=== PATIENT | male | born 1980 | race Hispanic/Latino ===

== ENCOUNTER 2019-05-11 17:42 | Observation (INO) | payer OTHER, SELFPAY ==
--- NOTE | 2019-05-11 | DI.CT.S_ITS ---
PROCEDURE: CT CERVICAL SPINE WO CON INDICATIONS: TRAUMA, FALL 10FT TECHNIQUE: Noncontrast 3 mm thick sections acquired from the skull base to the T4 level. Sagittal and coronal reformats were then constructed. For radiation dose reduction, the following was used: automated exposure control, adjustment of mA and/or kV according to patient size. COMPARISON: None. FINDINGS: Image quality: Excellent. Bones: No fractures or dislocations. Visualized superior ribs are intact. Soft tissues: Prevertebral soft tissues are normal in thickness. No paravertebral hematomas. No apical pneumothoraces. IMPRESSION: No trauma found. Dictated by: Yanick Monsivais M.D. on 05/11/2019 at 18:36 Approved by: Yanick Monsivais M.D. on 05/11/2019 at 18:37
--- NOTE | 2019-05-11 | DI.RAD.S_ITS ---
PROCEDURE: XR CHEST 1V INDICATIONS: TRAUMA TECHNIQUE: One view of the chest was acquired. COMPARISON: None. FINDINGS: Surgical changes and devices: None. Lungs and pleura: Lungs are abnormal, with reduced inspiration in what appears to be potentially mild alveolar edema bilaterally. Aspiration may explain the appearance.. No pleural effusions or pneumothorax. Mediastinum: Mediastinal contours appear normal. Heart size is normal. Bones and chest wall: No suspicious bony lesions. Overlying soft tissues appear unremarkable. IMPRESSION: Limited quality visualization, possible bilateral aspiration but this is in the setting of relatively prominently reduced inspiratory volume greater on the right than the left. Rib fractures or pneumothorax are not seen. Dictated by: Yanick Monsivais M.D. on 05/11/2019 at 18:34 Approved by: Yanick Monsivais M.D. on 05/11/2019 at 18:35
--- NOTE | 2019-05-11 | DI.RAD.S_ITS ---
PROCEDURE: XR PELVIS 1-2V INDICATIONS: TRAUMA TECHNIQUE: Single frontal view(s) of the pelvis acquired. COMPARISON: None. FINDINGS: Bones: No fractures or dislocations. No suspicious bony lesions. Soft tissues: Visualized bowel gas pattern is normal. No suspicious soft tissue calcifications. IMPRESSION: No trauma found. Dictated by: Yanick Monsivais M.D. on 05/11/2019 at 18:35 Approved by: Yanick Monsivais M.D. on 05/11/2019 at 18:35
--- NOTE | 2019-05-11 | DI.CT.S_ITS ---
PROCEDURE: CT CHEST ABD PEL W CON INDICATIONS: TRAUMA, FALL 10 FT TECHNIQUE: After the administration of intravenous contrast, 5 mm thick sections acquired from the lung apices to the symphysis. 2.5 mm thick coronal and sagittal reformats were acquired. Additional 7 mm thick coronal maximum intensity projection (MIP) reformats acquired through the lungs. Optional 10-minute delayed imaging may be performed from the kidneys to the bladder. For radiation dose reduction, the following was used: automated exposure control, adjustment of mA and/or kV according to patient size. COMPARISON: [facility], CR, XR CHEST 1V, 05/11/2019, 17:46. FINDINGS: Image quality: Excellent. CHEST: Lungs: No pulmonary contusions or lacerations. No acute airspace opacities. Reduced inspiratory volume, as was also noted on chest plain film, with crowding of the bronchovascular markings as a result. No aspiration is suspected No pneumothorax or hemothorax. Central and peripheral airways appear patent and normal in caliber. Mediastinum: No mediastinal hematomas. Heart size is normal. No pericardial effusion. Thoracic aorta and pulmonary arteries demonstrate normal size and enhancement. No mediastinal or hilar adenopathy. Esophagus is normal in caliber. No hiatal hernia. Chest wall: No rib fractures. No subcutaneous emphysema. No axillary or supraclavicular adenopathy. Thyroid gland appears normal. ABDOMEN: Solid organs: Liver is normal in size and enhancement, without lacerations. Gallbladder appears normal. Biliary system is non-dilated. Pancreas enhances normally, without transection. Spleen is normal in size and enhancement, without lacerations. No adrenal hematomas. Both kidneys enhance normally, without hydronephrosis or lacerations. Peritoneum and bowel: No free fluid or air. Unenhanced bowel loops demonstrate normal wall thickness and caliber. Nodes and vessels: No retroperitoneal or mesenteric adenopathy. Aorta and inferior vena cava are normal in size and enhancement. Miscellaneous: No ventral hernias. PELVIS: Genitourinary: Bladder wall thickness is normal. Miscellaneous: No inguinal hernias or adenopathy. Bones: Pelvic ring and hip joints appear intact. No vertebral compression fractures. IMPRESSION: No acute trauma found. Reduced inspiratory volumes crowding the bronchovascular markings over the chest bilaterally, right slightly greater than left. No aspiration seen. Dictated by: Yanick Monsivais M.D. on 05/11/2019 at 18:52 Approved by: Yanick Monsivais M.D. on 05/11/2019 at 18:57
--- NOTE | 2019-05-11 | DI.CT.S_ITS ---
PROCEDURE: CT HEAD/BRAIN WO CON INDICATIONS: TRAUMA, FALL OFF OF LADDER TECHNIQUE: Noncontrast 4.5 mm thick angled axial sections acquired from the foramen magnum to the vertex, with coronal and sagittal reformats. For radiation dose reduction, the following was used: automated exposure control, adjustment of mA and/or kV according to patient size. COMPARISON: None. FINDINGS: Image quality: Excellent. CSF spaces: Basal cisterns are patent. No extra-axial fluid collections. Ventricles are normal in size and shape. Brain: No midline shift. No intracranial masses or hemorrhage. Preciado-white matter interface is normal. Skull and face: Calvarium and visualized facial bones are intact, without suspicious lesions. Sinuses: Visualized sinuses and mastoids are clear. IMPRESSION: No trauma found. Dictated by: Yanick Monsivais M.D. on 05/11/2019 at 18:35 Approved by: Yanick Monsivais M.D. on 05/11/2019 at 18:36
[2019-05-11 17:39] VITALS: BP 122/82; PULSE 74; RESP 18; TEMP 36.6; O2SAT 99
--- NOTE | 2019-05-11 18:01 | ED.TRAUMA ---
HPI - Trauma General Chief Complaint: Trauma Stated Complaint: Fell over 11 ft Time Seen by Provider: 05/11/19 17:58 Source: patient and EMS Mode of arrival: EMS Limitations: no limitations History of Present Illness HPI narrative: 38-year-old male comes to the emergency department with for approximately 11 ft landing on his left side. Patient is complaining of pain on his left abdomen. Patient denies loss of consciousness. Is alert and oriented. Patient states that he slipped on a ladder. He fell onto his side. He denies any loss of consciousness. States he had a headache initially and when he went to CT scan but that has resolved. He also felt nauseated but that has also resolved. Currently he has discomfort sort of in his midthoracic region. He denies any discomfort in his abdomen but is tender with palpation. Patient denies any other injuries. He denies any neck pain. He states it is painful to take a big breath. Patient does not currently have any nausea. He denies any pain in his pelvis denies any pain in his extremities. States he feels a little bit of tingling in his fingers on the right. He denies any other symptoms. Denies any medical issues, no prior surgeries. No tobacco, states he drinks alcohol only on test of occasions and has had none today. Denies any illicit. He was at work when this occurred. Related Data Home Medications Medication Instructions Recorded Confirmed No Known Home Medications 05/11/19 05/11/19 Allergies Allergy/AdvReac Type Severity Reaction Status Date / Time No Known Drug Allergies Allergy Verified 05/11/19 18:17 Review of Systems Review of Systems ROS Unobtainable: All systems reviewed & are unremarkable except as noted in HPI and below Patient History Social History household members: spouse and family Smoking Status: Never smoker Smoking Status: Never smoker alcohol intake frequency: holidays/special occasions only Substance Use Type: does not use Exam Narrative Exam Narrative: GEN: C-collar prior to arrival, backboard. Patient appears in mild distress. HEAD: No evidence of trauma, no raccoon/Kapoor sign. NECK: Nontender, painless range of motion, trachea midline Negative Nexus criteria, there is no mid line tenderness in the C-spine, distracting injury, altered mental status, neuro deficit, recent EtOH. EYES: PERRLA, EOMI ENT: External inspection normal, trachea is midline, TM's are normal no hemotypanum, Nares are clear, no septal hematoma, no dental or oral injury, airway is normal and with normal occlusion, No bony tenderness RESP: Chest is nontender and has symmetric movement, no ecchymosis, breath sounds are normal no crackles, wheezes or rales CVS: Heart sounds are normal, no murmur noted, No JVD. ABG/GI: Nontender, soft, normal bowel sounds, no distention, no organomegaly, pelvic rock is negative NEURO: Oriented AOx3, neuro is grossly intact, sensation and motor is normal all 4 extremities moving, cranial nerves II through XII are intact, GCS is 15 PSYCH: Normal mood and affect SKIN: Intact, warm and dry, no crepitus and without decubitus BACK: Positive for midthoracic CVA tenderness, no vertebral tenderness, no step-off's, no crepitus EXT: Atraumatic, hips are nontender, no pedal edema, normal color and temperature, normal range of motion of extremities with normal tendon exam, 2+ pulses in all four extremities SKIN: Patient has small abrasion on right arm. Initial Vital Signs Initial Vital Signs: Vital Signs Temperature 97.8 F 05/11/19 17:39 Pulse Rate 74 05/11/19 17:39 Respiratory Rate 18 05/11/19 17:39 Blood Pressure 122/82 05/11/19 17:39 Pulse Oximetry 99 05/11/19 17:39 Scores GCS Barto coma scale eye opening: Spontaneous Jodie coma scale verbal response: Orientated Barto coma scale motor response: Obey commands Jodie coma scale total score: 15 Course Orders Ordered: ED Orders 05/11/19 17:54 Complete Blood Count AUTO DIFF Stat Comprehensive Metabolic Panel Stat Ethanol (ETOH) Stat Lipase Stat Partial Thromboplastin Time Stat Prothrombin Time INR Stat Type and Screen Stat 05/11/19 23:16 MR thoracic spine wo con Urgent Hydromorphone HCl (Dilaudid) 0.5 mg IV Q2H PRN PRN Reason: Pain, Severe (7-10) Sodium Chloride (Normal Saline 0.9%) 1,000 mls @ 125 mls/hr IV CONT ARTEM Naloxone HCl (Narcan) 0.2 mg IV Q2MIN PRN PRN Reason: Opiate Reversal Ondansetron HCl (Zofran) 4 mg IV Q4HR PRN PRN Reason: Nausea And Vomiting Oxycodone/Acetaminophen (Percocet 5/325) 1 tab PO Q4HR PRN PRN Reason: Pain, Mild (1-3) Discontinued Medications Diazepam (Valium) 5 mg IV NOW ONE Stop: 05/11/19 21:45 Last Admin: 05/11/19 21:59 Dose: 5 mg Documented by: BARRIE Fentanyl (Sublimaze) 50 mcg IV NOW ONE Stop: 05/11/19 18:46 Last Admin: 05/11/19 19:04 Dose: 50 mcg Documented by: SAAD Ketorolac Tromethamine (Toradol) 30 mg IV NOW ONE Stop: 05/11/19 20:11 Last Admin: 05/11/19 20:49 Dose: 30 mg Documented by: ONELIA Ondansetron HCl (Zofran) 4 mg IV NOW ONE Stop: 05/11/19 18:46 Last Admin: 05/11/19 19:04 Dose: 4 mg Documented by: SAAD Oxycodone/Acetaminophen (Percocet 5/325) 2 tab PO NOW ONE Stop: 05/11/19 21:45 Last Admin: 05/11/19 21:59 Dose: 2 tab Documented by: BARRIE Vital Signs Vital signs: Vital Signs - 8 hr 05/11/19 17:39 05/11/19 18:13 05/11/19 18:46 Temperature 97.8 F 97.8 F Pulse Rate 74 74 93 H Respiratory Rate 18 18 33 H Blood Pressure 122/82 122/82 Blood Pressure [Left Arm] 121/77 Pulse Oximetry 99 99 99 05/11/19 19:00 05/11/19 21:00 05/11/19 21:45 Temperature Pulse Rate 85 88 89 Respiratory Rate 22 15 Blood Pressure Blood Pressure [Left Arm] 125/72 122/70 Pulse Oximetry 100 100 96 MDM - Trauma Lab Data Attestation: I reviewed the patient's lab results. Result diagrams: 05/11/19 17:54 05/11/19 17:54 Labs: Lab Results 05/11/19 05/11/19 05/11/19 Range/Units 17:54 17:54 17:54 WBC 11.7 H (4.5-11.0) X10^3/uL RBC 4.80 (4.5-5.9) X10^6/uL Hgb 14.8 (13.5-17.5) g/dL Hct 43.3 (41-53) % MCV 90.1 (80-100) fL MCH 30.8 (26-34) PG MCHC 34.1 (30-36) % RDW 13.0 (11.6-14.8) % Plt Count 178 (150-400) X10^3/uL Neut % (Auto) 77.2 H (50-75) % Lymph % (Auto) 16.3 L (25-40) % [place] % (Auto) 4.7 (3-14) % Eos % (Auto) 1.3 L (2-4) % Baso % (Auto) 0.5 (0-2) % Neut # (Auto) 9100 H (0344-4987) /uL Lymph # (Auto) 1900 (9166-5492) /uL [place] # (Auto) 600 (0-900) /uL Eos # (Auto) 200 (0-450) /uL Baso # (Auto) 100 (0-100) /uL PT 12.8 H (10.1-12.7) SECONDS INR 1.1 (0.9-1.3) APTT 35 (26.4-36.2) SECONDS Sodium 139 (137-145) mmol/L Potassium 3.9 (3.4-5.1) mmol/L Chloride 105 (98-107) mmol/L Carbon Dioxide 25 (22-32) mmol/L BUN 18 (9-20) mg/dL Creatinine 0.67 (0.66-1.25) mg/dL Estimated GFR > 60.0 (>60) mL/min BUN/Creatinine Ratio 26.9 H (6-22) Glucose 107 H (70-100) mg/dL Calcium 9.3 (8.4-10.2) mg/dL Total Bilirubin 0.4 (0.2-1.3) mg/dL AST 56 (17-59) IU/L ALT 40 (<50) IU/L Alkaline Phosphatase 101 (38-126) U/L Total Protein 8.2 (6.3-8.2) g/dL Albumin 4.7 (3.5-5.0) g/dL Globulin 3.5 (1.7-4.1) g/dL Albumin/Globulin Ratio 1.3 (1.0-2.8) Lipase 69 (23-300) U/L Ethyl Alcohol < 10 ( - 10) mg/dL Blood Type Antibody Screen 05/11/19 Range/Units 17:54 WBC (4.5-11.0) X10^3/uL RBC (4.5-5.9) X10^6/uL Hgb (13.5-17.5) g/dL Hct (41-53) % MCV (80-100) fL MCH (26-34) PG MCHC (30-36) % RDW (11.6-14.8) % Plt Count (150-400) X10^3/uL Neut % (Auto) (50-75) % Lymph % (Auto) (25-40) % [place] % (Auto) (3-14) % Eos % (Auto) (2-4) % Baso % (Auto) (0-2) % Neut # (Auto) (9730-4786) /uL Lymph # (Auto) (7820-2497) /uL [place] # (Auto) (0-900) /uL Eos # (Auto) (0-450) /uL Baso # (Auto) (0-100) /uL PT (10.1-12.7) SECONDS INR (0.9-1.3) APTT (26.4-36.2) SECONDS Sodium (137-145) mmol/L Potassium (3.4-5.1) mmol/L Chloride (98-107) mmol/L Carbon Dioxide (22-32) mmol/L BUN (9-20) mg/dL Creatinine (0.66-1.25) mg/dL Estimated GFR (>60) mL/min BUN/Creatinine Ratio (6-22) Glucose (70-100) mg/dL Calcium (8.4-10.2) mg/dL Total Bilirubin (0.2-1.3) mg/dL AST (17-59) IU/L ALT (<50) IU/L Alkaline Phosphatase (38-126) U/L Total Protein (6.3-8.2) g/dL Albumin (3.5-5.0) g/dL Globulin (1.7-4.1) g/dL Albumin/Globulin Ratio (1.0-2.8) Lipase (23-300) U/L Ethyl Alcohol ( - 10) mg/dL Blood Type O Positive Antibody Screen Negative Imaging Data Chest x-ray: Radiologist's Impression: [address] [address] XRay Report Signed Patient: Eliseo ColonMR#: [id number] : 1980Acct:[id number] Age/Sex: 38 / MDate of Service: 05/11/19 Loc: ED Accession Number: [id number] Procedure: XR chest 1V Ordering Provider: Mackenzie White MD PROCEDURE: XR CHEST 1V INDICATIONS: TRAUMA TECHNIQUE: One view of the chest was acquired. COMPARISON: None. FINDINGS: Surgical changes and devices: None. Lungs and pleura: Lungs are abnormal, with reduced inspiration in what appears to be potentially mild alveolar edema bilaterally. Aspiration may explain the appearance.. No pleural effusions or pneumothorax. Mediastinum: Mediastinal contours appear normal. Heart size is normal. Bones and chest wall: No suspicious bony lesions. Overlying soft tissues appear unremarkable. IMPRESSION: Limited quality visualization, possible bilateral aspiration but this is in the setting of relatively prominently reduced inspiratory volume greater on the right than the left. Rib fractures or pneumothorax are not seen. Dictated by: Yancik Monsivais M.D. on 05/11/2019 at 18:34 Approved by: Yanick Monsivais M.D. on 05/11/2019 at 18:35 pelvic xray: Radiologist's Impression: [address] [address] XRay Report Signed Patient: Eliseo ColonMR#: [id number] : 1980Acct:[id number] Age/Sex: 38 / MDate of Service: 05/11/19 Loc: ED Accession Number: [id number] Procedure: XR pelvis 1-2V Ordering Provider: Mackenzie White MD PROCEDURE: XR PELVIS 1-2V INDICATIONS: TRAUMA TECHNIQUE: Single frontal view(s) of the pelvis acquired. COMPARISON: None. FINDINGS: Bones: No fractures or dislocations. No suspicious bony lesions. Soft tissues: Visualized bowel gas pattern is normal. No suspicious soft tissue calcifications. IMPRESSION: No trauma found. Dictated by: Yanick Monsivais M.D. on 05/11/2019 at 18:35 Approved by: Yanick Monsivais M.D. on 05/11/2019 at 18:35 CT scan - head: Radiologist's Impression: [address] [address] [address] Scan Report Signed Patient: Eliseo ColonMR#: [id number] : 1980Acct:[id number] Age/Sex: 38 / MDate of Service: 05/11/19 Loc: ED Accession Number: [id number] Procedure: CT head/brain wo con Ordering Provider: Mackenzie White MD PROCEDURE: CT HEAD/BRAIN WO CON INDICATIONS: TRAUMA, FALL OFF OF LADDER TECHNIQUE: Noncontrast 4.5 mm thick angled axial sections acquired from the foramen magnum to the vertex, with coronal and sagittal reformats. For radiation dose reduction, the following was used: automated exposure control, adjustment of mA and/or kV according to patient size. COMPARISON: None. FINDINGS: Image quality: Excellent. CSF spaces: Basal cisterns are patent. No extra-axial fluid collections. Ventricles are normal in size and shape. Brain: No midline shift. No intracranial masses or hemorrhage. Preciado-white matter interface is normal. Skull and face: Calvarium and visualized facial bones are intact, without suspicious lesions. Sinuses: Visualized sinuses and mastoids are clear. IMPRESSION: No trauma found. Dictated by: Yanick Monsivais M.D. on 05/11/2019 at 18:35 Approved by: Yanick Monsivais M.D. on 05/11/2019 at 18:36 CT - cervical spine: Radiologist's Impression: [address] [address] [address] Scan Report Signed Patient: Eliseo ColonMR#: [id number] : 1980Acct:[id number] Age/Sex: 38 / MDate of Service: 05/11/19 Loc: ED Accession Number: [id number] Procedure: CT cervical spine wo con Ordering Provider: Mackenzie White MD PROCEDURE: CT CERVICAL SPINE WO CON INDICATIONS: TRAUMA, FALL 10FT TECHNIQUE: Noncontrast 3 mm thick sections acquired from the skull base to the T4 level. Sagittal and coronal reformats were then constructed. For radiation dose reduction, the following was used: automated exposure control, adjustment of mA and/or kV according to patient size. COMPARISON: None. FINDINGS: Image quality: Excellent. Bones: No fractures or dislocations. Visualized superior ribs are intact. Soft tissues: Prevertebral soft tissues are normal in thickness. No paravertebral hematomas. No apical pneumothoraces. IMPRESSION: No trauma found. Dictated by: Yanick Monsivais M.D. on 05/11/2019 at 18:36 Approved by: Yanick Monsivais M.D. on 05/11/2019 at 18:37 CT scan - abdomen/pelvis: Radiologist's Impression: [place] [address] CT Scan Report Signed Patient: Eliseo MedranoMR#: [id number] : 1980Acct:[id number] Age/Sex: 38 / MDate of Service: 05/11/19 Loc: ED Accession Number: [id number] Procedure: CT chest abd pel w con Ordering Provider: Mackenzie White MD PROCEDURE: CT CHEST ABD PEL W CON INDICATIONS: TRAUMA, FALL 10 FT TECHNIQUE: After the administration of intravenous contrast, 5 mm thick sections acquired from the lung apices to the symphysis. 2.5 mm thick coronal and sagittal reformats were acquired. Additional 7 mm thick coronal maximum intensity projection (MIP) reformats acquired through the lungs. Optional 10-minute delayed imaging may be performed from the kidneys to the bladder. For radiation dose reduction, the following was used: automated exposure control, adjustment of mA and/or kV according to patient size. COMPARISON: [facility], CR, XR CHEST 1V, 05/11/2019, 17:46. FINDINGS: Image quality: Excellent. CHEST: Lungs: No pulmonary contusions or lacerations. No acute airspace opacities. Reduced inspiratory volume, as was also noted on chest plain film, with crowding of the bronchovascular markings as a result. No aspiration is suspected No pneumothorax or hemothorax. Central and peripheral airways appear patent and normal in caliber. Mediastinum: No mediastinal hematomas. Heart size is normal. No pericardial effusion. Thoracic aorta and pulmonary arteries demonstrate normal size and enhancement. No mediastinal or hilar adenopathy. Esophagus is normal in caliber. No hiatal hernia. Chest wall: No rib fractures. No subcutaneous emphysema. No axillary or supraclavicular adenopathy. Thyroid gland appears normal. ABDOMEN: Solid organs: Liver is normal in size and enhancement, without lacerations. Gallbladder appears normal. Biliary system is non-dilated. Pancreas enhances normally, without transection. Spleen is normal in size and enhancement, without lacerations. No adrenal hematomas. Both kidneys enhance normally, without hydronephrosis or lacerations. Peritoneum and bowel: No free fluid or air. Unenhanced bowel loops demonstrate normal wall thickness and caliber. Nodes and vessels: No retroperitoneal or mesenteric adenopathy. Aorta and inferior vena cava are normal in size and enhancement. Miscellaneous: No ventral hernias. PELVIS: Genitourinary: Bladder wall thickness is normal. Miscellaneous: No inguinal hernias or adenopathy. Bones: Pelvic ring and hip joints appear intact. No vertebral compression fractures. IMPRESSION: No acute trauma found. Reduced inspiratory volumes crowding the bronchovascular markings over the chest bilaterally, right slightly greater than left. No aspiration seen. Dictated by: Yanick Monsivais M.D. on 05/11/2019 at 18:52 Approved by: Yanick Monsivais M.D. on 05/11/2019 at 18:57 ECG Data Attestation: I personally reviewed and interpreted this ECG as follows: Prior ECG tracings: not available for review Interpretation: Sinus rhythm rate 82 P are 174 QRS of 94 and QTC of 412. No ST elevation or depression is appreciated. Patient does have Q-waves in 2 and 3. MDM Narrative Medical decision making narrative: Recheck after medication, patient's chest x-ray, pelvic x-ray did not show any acute traumatic injuries. Patient's head CT, C-spine and CT chest abdomen and pelvis did not show any fracture or other signs of acute trauma there is some crowding of the bronchovascular markings with the chest bilaterally right slightly greater than left. No aspiration noted. No pulmonary contusions or lacerations are noted. Patient has reduced inspiratory volume. Patient has several rounds of pain medication including fentanyl, Toradol and Valium as well as Percocet with minimal improvement. Patient failed ambulation trial. He continues complain of a little bit of tingling in his right hand. Discussed with Dr. Brown plan for observation and thoracic MRI for the morning as patient does not have any other neurologic symptoms at this time. Discharge Plan Departure Patient Disposition: Admitted as Observation Clinical Impression: Arm paresthesia, right Fall from ladder Qualifiers: Encounter type: initial encounter Qualified Code(s): W11.XXXA - Fall on and from ladder, initial encounter Acute thoracic back pain Qualifiers: Back pain laterality: bilateral Qualified Code(s): M54.6 - Pain in thoracic spine Discharge Date/Time: 05/12/19 00:40 Instructions: DI for Thoracic Back Pain Admit Date/Time: 05/11/19 23:43 Admit Provider: Velasquez Brown
[2019-05-11 18:07] LABS: Add Manual Diff / Slide Review NO; Basophils Absolute Auto 100 /uL (0-100); Basophils Percent Auto 0.5 % (0-2); Eosinophils Absolute Auto 200 /uL (0-450); Eosinophils Percent Auto 1.3 % (2-4); Hematocrit 43.3 % (41-53); Hemoglobin 14.8 g/dL (13.5-17.5); Lymphocytes Absolute Auto 1900 /uL (1100-4500); Lymphocytes Percent Auto 16.3 % (25-40); Mean Corpuscular HGB Conc 34.1 % (30-36); Mean Corpuscular Hemoglobin 30.8 PG (26-34); Mean Corpuscular Volume 90.1 fL (80-100); Monocytes Absolute Auto 600 /uL (0-900); Monocytes Percent Auto 4.7 % (3-14); Neutrophils Absolute Auto 9100 /uL (1500-7000); Neutrophils Percent Auto 77.2 % (50-75); Platelet Count 178 X10^3/uL (150-400); White Blood Cell Count 11.7 X10^3/uL (4.5-11.0)
[2019-05-11 18:13] VITALS: BP 122/82; PULSE 74; RESP 18; TEMP 36.6; O2SAT 99; BMI 31.1
[2019-05-11 18:14] LABS: INR 1.1 (0.9-1.3); Prothrombin Time 12.8 SECONDS (10.1-12.7)
[2019-05-11 18:16] LABS: PTT Partial Thromboplastin Tim 35 SECONDS (26.4-36.2)
[2019-05-11 18:18] LABS: Alanine Aminotransferase 40 IU/L (<50); Albumin 4.7 g/dL (3.5-5.0); Albumin Globulin Ratio 1.3 (1.0-2.8); Alkaline Phosphatase 101 U/L (38-126); Aspartate Aminotransferase 56 IU/L (17-59); BUN Creatinine Ratio 26.9 (6-22); Bilirubin Total 0.4 mg/dL (0.2-1.3); Blood Urea Nitrogen 18 mg/dL (9-20); Calcium 9.3 mg/dL (8.4-10.2); Carbon Dioxide 25 mmol/L (22-32); Chloride 105 mmol/L (98-107); Estimated Glomerular Filt Rate > 60.0 mL/min (>60); Ethanol (ETOH) < 10 mg/dL; Globulin 3.5 g/dL (1.7-4.1); Glucose 107 mg/dL (70-100); HEMOLYSIS 23 (0-50); Lipase 69 U/L (23-300); Potassium 3.9 mmol/L (3.4-5.1); Sodium 139 mmol/L (137-145); Total Protein 8.2 g/dL (6.3-8.2)
[2019-05-11 18:46] VITALS: BP 121/77; PULSE 93; RESP 33; O2SAT 99
[2019-05-11 19:00] VITALS: BP 125/72; PULSE 85; RESP 22; O2SAT 100
[2019-05-11] MEDS: ONDANSETRON 4 MG/2 ML INJ IV (19:04)
[2019-05-11] MEDS: fentaNYL 100 MCG/2 ML INJ 50 MCG IV (19:04)
--- NOTE | 2019-05-11 19:27 | PC.NURSE ---
Pt came in in C-collar and air splint for spinal immobilization. Per Dr's instruction the air splint was deflated upon arrival for a more comprehensive exam. Following imaging at approx. 1915 Dr. Vyas cleared the neck and spine and removed the C-collar. Pt alert, oriented, and compliant with care at this time.
[2019-05-11] MEDS: KETOROLAC 60 MG/2 ML VIAL 30 MG IV (20:49)
[2019-05-11] MEDS: DIPHTH,PERTUSS(ACELL),TET VAC 0.5 ML SYRINGE IM (20:50)
[2019-05-11 21:00] VITALS: BP 122/70; PULSE 88; RESP 15; O2SAT 100
[2019-05-11 21:45] VITALS: PULSE 89; O2SAT 96
--- NOTE | 2019-05-11 21:52 | PC.NURSE ---
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 failed ambulation trial. Pt. was in to much px when walking. Kartik and THERESA Calderón notified.
[2019-05-11] MEDS: diazePAM 10 MG/2 ML SYRINGE 5 MG IV (21:59)
[2019-05-11] MEDS: OXYCODONE/ACETAMINOPHEN 5/325 TABLET 2 TAB PO (21:59)
--- NOTE | 2019-05-11 23:16 | DI.MRI.S_ITS ---
PROCEDURE: MR THORACIC SPINE WO CON INDICATIONS: thoracic back pain with paresthesias fingers. TECHNIQUE: Noncontrast sagittal T1 spine echo and T2 fast spin echo, sagittal STIR, axial T1 and T2 fast spin echo through the thoracic spine. COMPARISON: None. FINDINGS: Image quality: Excellent. Alignment and Curvature: There is normal bony alignment. Bone Marrow: Minimal loss of height noted in the L1, L2, L3, L4 and L6 vertebral bodies. There is increased T2 signal within the subchondral marrow of the superior endplates of the L1, L2, L3, L4 and L6 vertebral bodies. Findings compatible with mild superior endplate L1, L2, L3, L4, L5 and L6 vertebral body compression fractures. No kyphosis or retropulsed fragments associated with the acute compression deformities. Spinal Cord: Visualized spinal cord is normal in size and signal. Paraspinous Soft Tissues: No paravertebral masses. Extensive edema noted in the posterior right paraspinous from visualized portions of the cervical spine to level of the T7 vertebral body. Edema is noted in the C7-T1, T1-T2 and T2-T3 interspinous ligaments. Miscellaneous: On axial images, central canal and foramina appear widely patent at all scanned levels. IMPRESSION: 1. Acute L1, L2, L3, L4 and L6 superior endplate compression fractures which result in minimal loss of vertebral body height. 2. No central stenosis 3. No neural foraminal narrowing. 4. No neural compression. 5. No abnormal spinal cord signal. 5. Extensive soft tissue edema noted in the right paraspinous soft tissues extending from visualized portions of the cervical spine to the level of the T7 vertebral body likely related to posttraumatic soft tissue contusion. There is also edema in the C7-T1, T1-T2 and T2-T3 interspinous ligaments and ligamentous injury cannot be excluded. Dictated by: Mary Sanon MD, PhD on 05/12/2019 at 14:32 Approved by: Mary Sanon MD, PhD on 05/12/2019 at 14:41
[2019-05-11 23:51] VITALS: BMI 29.6
[2019-05-12] VITALS (8 sets, daily range): BP systolic 107–119; BP diastolic 51–69; PULSE 66–74; RESP 16–18; TEMP 36.6–37.2; O2SAT 95–99
[2019-05-12] MEDS: HYDROMORPHONE 0.5 MG INJ IV ×3 (01:10→11:15)
[2019-05-12] MEDS: SODIUM CHLORIDE 0.9% 1,000 ML 125 ML IV ×2 (01:10→08:47)
[2019-05-12] MEDS: OXYCODONE/ACETAMINOPHEN 5/325 TABLET 1 TAB PO ×3 (08:47→21:22)
--- NOTE | 2019-05-12 09:19 | PM.HP.1 ---
History of Present Illness History of Present Illness Date Patient Seen: 05/12/19 Time Patient Seen: 09:19 Chief complaint: Fell over 11 ft Narrative: 38-year-old male fell off a ladder last evening about 5:00 a.m. came to the emergency department where he was evaluated with extensive x-rays CT scans from head to toe all of which are normal. He complains of back pain and pain across the anterior chest. Neurologically he is intact with no neurologic type complaints at this time. Patient did not lose consciousness Patient History Family & Social History Social History: household members spouse,family Prior Living Arrangements House Safety & Behavioral: Feels Safe in Current Yes Environment Been Physically Hurt or No Threatened By a Person Tobacco & Substance use: Smoking Status Never smoker alcohol intake frequency holiday/special occasion Substance Use Type does not use Meds Home Medications and Allergies Home Medications Medication Instructions Recorded Confirmed Type No Known Home Medications 05/11/19 05/11/19 History Allergies Allergy/AdvReac Type Severity Reaction Status Date / Time No Known Drug Allergies Allergy Verified 05/11/19 18:17 Review of Systems Review of Systems ROS: Yes All systems reviewed with the patient and are negative except as otherwise documented Exam Vital Signs (past 8 hours): - 05/12/19 04:51 05/12/19 07:55 Temperature 97.8 F 98.8 F Pulse Rate 72 73 Respiratory Rate 18 16 Blood Pressure 112/52 L 118/56 L Pulse Oximetry 97 99 Oxygen Delivery Method Room Air Oxygen Flow Rate 0 Narrative Exam Narrative: Patient is not speaking Dominican well. Seems to understand however. Ears nose and throat are normal. Neck no tenderness no adenopathy Has chest wall tenderness anteriorly and tenderness in the lower thoracic spine. Lungs are clear bilaterally Heart regular rhythm no murmur Abdomen soft nontender Extremities are normal no evidence of long bone fracture Neurologic exam is intact. Equal strength bilaterally. Equal sensation bilaterally. This is and involves both upper and lower extremities. Objective Labs Result Diagrams: 05/11/19 17:54 05/11/19 17:54 Labs: Laboratory Results - last 24 hr 05/11/19 05/11/19 05/11/19 17:54 17:54 17:54 WBC 11.7 H RBC 4.80 Hgb 14.8 Hct 43.3 MCV 90.1 MCH 30.8 MCHC 34.1 RDW 13.0 Plt Count 178 Neut % (Auto) 77.2 H Lymph % (Auto) 16.3 L [place] % (Auto) 4.7 Eos % (Auto) 1.3 L Baso % (Auto) 0.5 Neut # (Auto) 9100 H Lymph # (Auto) 1900 [place] # (Auto) 600 Eos # (Auto) 200 Baso # (Auto) 100 PT 12.8 H INR 1.1 APTT 35 Sodium 139 Potassium 3.9 Chloride 105 Carbon Dioxide 25 BUN 18 Creatinine 0.67 Estimated GFR > 60.0 BUN/Creatinine Ratio 26.9 H Glucose 107 H Calcium 9.3 Total Bilirubin 0.4 AST 56 ALT 40 Alkaline Phosphatase 101 Total Protein 8.2 Albumin 4.7 Globulin 3.5 Albumin/Globulin Ratio 1.3 Lipase 69 Ethyl Alcohol < 10 Blood Type Antibody Screen 05/11/19 17:54 WBC RBC Hgb Hct MCV MCH MCHC RDW Plt Count Neut % (Auto) Lymph % (Auto) [place] % (Auto) Eos % (Auto) Baso % (Auto) Neut # (Auto) Lymph # (Auto) [place] # (Auto) Eos # (Auto) Baso # (Auto) PT INR APTT Sodium Potassium Chloride Carbon Dioxide BUN Creatinine Estimated GFR BUN/Creatinine Ratio Glucose Calcium Total Bilirubin AST ALT Alkaline Phosphatase Total Protein Albumin Globulin Albumin/Globulin Ratio Lipase Ethyl Alcohol Blood Type O Positive Antibody Screen Negative Assessment & Plan Assessment & Plan narrative: Patient is admitted for observation after a fall of about 11 ft. Currently all radiographs are normal. There is no sign of fracture anywhere. He is still quite sore in the anterior chest and in his back. Again x-rays are all normal. We ordered an MRI of his spine to be sure that there is no occult injury there. I will have physical therapy evaluate him as well. Quality VTE Deep Vein Thrombosis/Pulmonary Embolism Present on Admission: No
--- NOTE | 2019-05-12 11:07 | CM.DANOTE ---
DCP: Case received, EMR reviewed and met with patient. Introduced self and role. Was able to meet with patient briefly in his room, as well as spouse, to obtain some information regarding baseline activity. DCP assessment completed with information currently available. Patient is a 38 year old male who admitted yesterday evening to the care of the hospitalist/surgical team. PCP: None Payer: confirmed: [employer]. Patient came to the hospital via ambulance secondary to a fall from a ladder, which was approximately 11 feet. Patient is employed at [employer], and this was a work related injury. Met with patient briefly, , Marixa, at bedside. Patient was laying in bed, alert and oriented, limited Lithuanian. Patient is independent, drives, and does not have a primary care provider. He is here under observation ruling out any fractures. P: DCP to continue to be available for any resources needed. Patient should be able to go home when deemed medically stable. Fidelia Loredo RN/Silk Opener
[2019-05-12] MEDS: GABAPENTIN 300 MG CAPSULE PO ×3 (11:12→21:22)
--- NOTE | 2019-05-12 12:35 | PT-IP ANOTE ---
Pt with pending MRI. Talked with nurse regarding holding PT at this time pending MRI result and nurse agreed. Nurse informed that pt still continue to have pain. informed nurse that pt also has bedrest order in place at this time. will f/u
[2019-05-12] MEDS: TRAMADOL 50 MG TABLET PO ×2 (12:38→23:58)
--- NOTE | 2019-05-12 14:28 | PC.NURSE ---
Addendum entered by Rolando Verduzco R.N. 05/12/19 15:03: patient off of unit for MRI Original Note: Patient rates pain 4-7/10 throughout the shift. See emar for medication management. Patient remains on bedrest until after MRI obtained. Due to happen at 1500. Patient aware. Patient is neurologically intact. Called surgeon, okay to advance diet to regular. Teaching on ordering meals provided. IVF infusing as per orders.
--- NOTE | 2019-05-12 18:32 | PM.CN ---
History of Present Illness Consult details Date Patient Seen: 05/12/19 Time Patient Seen: 18:33 Chief complaint: Fell over 11 ft Reason for consult: Low back pain Requesting provider: Velasquez Brown Narrative: 38-year-old gentleman who fell off a ladder landing around 11 ft. Patient was seen in the emergency room last night and was admitted due to mechanism of injury. Patient initially had a CT scan which was negative for any fractures or injuries. Due to continue complaints of low back pain an MRI was obtained this afternoon. Patient has been on bed rest and has not made any attempts on getting up and ambulating. Denies any numbness to the upper lower extremities. Denies any bowel or bladder changes. Denies any pain to the upper or lower extremities as well. Meds Home Medications and Allergies Home Medications Medication Instructions Recorded Confirmed Type No Known Home Medications 05/11/19 05/11/19 History Allergies Allergy/AdvReac Type Severity Reaction Status Date / Time No Known Drug Allergies Allergy Verified 05/11/19 18:17 Review of Systems Review of Systems ROS: Yes All systems reviewed with the patient and are negative except as otherwise documented Exam Vital Signs (past 8 hours): - 05/12/19 13:52 05/12/19 15:52 Temperature 98 F 99.0 F Pulse Rate 70 70 Respiratory Rate 17 18 Blood Pressure 110/51 L 119/67 Pulse Oximetry 99 97 Oxygen Delivery Method Room Air Oxygen Flow Rate 0 Narrative Exam Narrative: On physical exam, alert and oriented x3 gentleman in no apparent distress. Patient has normal range of motion and function of bilateral upper extremities without any pain or instability with range of motion. Nontender to palpation throughout with no crepitus or instability. Compartments are soft. Patient also has normal range of motion of bilateral lower extremities. With 5/5 strength in dorsiflexion and plantar flexion as well as extensor hallucis longus. Palpable pedal pulses. Compartments are soft and is nontender to palpation throughout the lower extremities with no ankle or knee swelling or instability. No pain with range of motion of bilateral hips. Patient is tender to palpation over the lumbar spine but nontender to palpation over the cervical and thoracic spine. No crepitus with palpation or bony step-offs in the spine. Objective Labs Result Diagrams: 05/11/19 17:54 05/11/19 17:54 Labs: Laboratory Results - last 24 hr 05/11/19 17:54 Blood Type O Positive Antibody Screen Negative Assessment & Plan Assessment & Plan narrative: 38-year-old gentleman status post 11 ft fall with low back pain. Patient recently had an MRI completed this afternoon which showed some superior endplate injuries involving multiple levels of the lumbar spine. As well as soft tissue injury around the lumbar spine. No sign of any compression fractures. No sign of any retropulsion or burst fractures. No sign of any cord compression or compromise. Patient would benefit from a lumbar brace to support the spine while ambulating. Patient can follow up with Orthopedics once he is discharged from the hospital. Time Spent With Patient Time with patient: 15-24 minutes
[2019-05-13] MEDS: OXYCODONE/ACETAMINOPHEN 5/325 TABLET 1 TAB PO ×3 (02:42→16:26)
[2019-05-13] MEDS: SODIUM CHLORIDE 0.9% 1,000 ML 50 ML IV (02:44)
[2019-05-13 03:35] VITALS: BP 100/67; PULSE 64; RESP 16; TEMP 36.8; O2SAT 96
[2019-05-13] MEDS: TRAMADOL 50 MG TABLET PO ×2 (09:18→13:31)
[2019-05-13] MEDS: GABAPENTIN 300 MG CAPSULE PO ×2 (09:18→13:31)
--- NOTE | 2019-05-13 09:44 | P.PN_ITS ---
Subjective Subjective Date Patient Seen: 05/13/19 Time Patient Seen: 09:44 Interval history: 38-year-old male admitted 24 hours ago after a fall. This morning he is complaining only of lumbar spine pain. He has no new neurologic findings. No neck pain with passive motion. Patient had an MRI of his spine yesterday afternoon which confirms compression fractures of endplates L1 234 and 6. Orthopedic consultation with Dr. Umaña was obtained. Exam Vital Signs (past 8 hours): - 05/13/19 03:35 Temperature 98.3 F Pulse Rate 64 Respiratory Rate 16 Blood Pressure 100/67 Pulse Oximetry 96 Oxygen Delivery Method Room Air Oxygen Flow Rate 0 Narrative Exam Narrative: Patient remains neurologically intact. Equal strength and sensation bilaterally. Abdomen soft nontender. He has lumbar spine tenderness only. Objective Labs Result Diagrams: 05/11/19 17:54 05/11/19 17:54 Assessment & Plan Assessment & Plan narrative: With the finding of lumbar fractures L1 234 in [address] the agreement with Dr. Umaña orthopedic surgeon that ambulation is safe we will have physical therapy ambulate the patient today. He had fairly extensive soft tissue injuries in the paraspinal muscles. Therefore I ever refrain from using Lovenox for DVT prophylaxis. He has sequential compression stockings for DVT prophylaxis. We will ambulate the patient with the assist of physical thera py and try using an abdominal binder for support. If necessary a lumbar brace will be ordered. Quality VTE Deep Vein Thrombosis/Pulmonary Embolism Present on Admission: No
--- NOTE | 2019-05-13 09:54 | PT.IIE ---
Current Diagnoses Pain in thoracic spine (05/11/19) Paresthesia of skin (05/11/19) Fall on and from ladder, initial encounter (05/11/19) Physical Therapy Inpatient Evaluation/Re-Eval M1 PT/OT-IP Prior Functional Status Start: 05/13/19 12:21 Freq: NEEDED Status: Active Protocol: Document 05/13/19 09:54 AB (Rec: 05/13/19 12:51 AB [id number]) Medical Review Prior Functional Status Medical History Reviewed Yes Communication able to make needs known; spouse in room and assists in translating when needed Mobility and Gait pt stated that he is independent with all mobilities and ambulation without AD Social History Household Members spouse,family Living Arrangements House Number of Floors (Floors) One Floor Number of Stairs To Enter/Railing? 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 M2 PT-IP Current Condition Start: 05/13/19 12:21 Freq: NEEDED Status: Active Protocol: Document 05/13/19 09:54 AB (Rec: 05/13/19 12:51 AB [id number]) Physical Therapy Current Condition Current Condition Evaluation Date 05/13/19 Treatment Diagnosis lumbar compression fractures; difficulty in walking Onset Date 05/11/2019 Precautions Lumbar Precautions Log Roll,No Twisting,Limit Bending,Lifting Restriction of 10 lbs Brace Abdominal binder per doctor's order M3 PT-IP Subjective Start: 05/13/19 12:21 Freq: NEEDED Status: Active Protocol: Document 05/13/19 09:54 AB (Rec: 05/13/19 12:51 AB [id number]) Subjective Physical Therapy Visit Type Type Initial Evaluation Visit Start Time 09:54 Visit Stop Time 11:50 Total Visit Minutes 40 Notes pt seen for split visits: 954 to 1004; 1120 to 1150 Number of TICKET DISPENSER CHANGER Visits 0 Physical Therapy Visit Comments Patient Comments pt agreeable to do PT Therapy Pain Assessment Pain When Pain Assessed At Rest Pain Present Pain Present Pain Reported Location Chest Intensity 8 Scale Used Numeric (1 - 10) Pain Behaviors Guarding Bilateral Lower Back Intensity 8 Scale Used Numeric (1 - 10) Pain Behaviors Guarding Pain Management Techniques Apply Cold M4 PT-IP Mobility and Gait Start: 05/13/19 12:21 Freq: NEEDED Status: Active Protocol: Document 05/13/19 09:54 AB (Rec: 05/13/19 12:51 AB [id number]) PT-Bed Mobility Assessment Rolling Type of Rolling Log Rolling Level of Assist Standby Assistance Supine to Sit Supine to Sit Standby Assistance PT-Transfer Assessment Sit to and From Stand Sit to and from Stand Contact Guard Assistance,Use of Upper Extremities Equipment Transfer Assistive Device Gait Belt,Front Wheeled Walker Orthotic/Prosthetic Devices or Brace: No Transfers Transfer Destination Chair Transfer Technique Stand Step Pivot Transfer Ability Level of Assist Contact Guard Assistance,1 Person Assistance,Use of Upper Extremities Comments Mobility Comments nurse stated that Dr. Brown talked to Dr. Smith and ordered abdominal binder for pt instead of lumbar brace and pt is ambulate as tolerated Gait Assessment Gait Gait Assistance Required: Contact Guard Assist Distance (Feet) 30 Able to Maintain Weight Bearing Status Yes During Gait Assistive Devices Assistive Device Gait Belt,Front Wheeled Walker Orthotic/Prosthetic Devices or Brace: Yes Gait Deviations General Gait Pattern Antalgic,Decreased Stride Length,Decreased Feet Clearance Factors Limiting Gait Function Factors Limiting Gait Function Decreased Activity Tolerance, Decreased Strength,Limited Range of Motion,Pain,Poor Balance PT-Balance Assessment Sitting Balance and Reactions Static Sitting Balance Ability Good Dynamic Sitting Balance Ability Good Standing Balance and Reactions Static Standing Balance Ability Fair Dynamic Standing Balance Ability Fair Device Used FWW M5 PT-IP Objective Assessments Start: 05/13/19 12:21 Freq: NEEDED Status: Active Protocol: Document 05/13/19 09:54 AB (Rec: 05/13/19 12:51 AB [id number]) Orientation Orientation/Cognition Level of Alertness Alert Language Function Ability No Deficits Noted Safety Awareness Understands Safety Issues Memory Description No Deficits Noted Gross Range of Motion Lower Extremity ROM Assessment Within Functional Limits Strength Lower Extremity Strength Assessment Within Functional Limits Coordination Assessment Gross Coordination Gross Coordination WNL Sensation Assessment Sensation Gross Sensation WNL Muscle Tone Muscle Tone WNL Yes M6 PT-IP Treatment Start: 05/13/19 12:21 Freq: NEEDED Status: Active Protocol: Document 05/13/19 09:54 AB (Rec: 05/13/19 12:51 AB [id number]) Physical Therapy Treatment Education Education Provided Precautions,Weight Bearing Status,Safety Brace Education [place],Patient Equipment Issued Equipment Type and Company abdominal binder dispensed and pt signed document Other Treatments Other Treatment Performed handouts provided to pt M7 PT-IP Assessment and Plan Start: 05/13/19 12:21 Freq: NEEDED Status: Active Protocol: Document 05/13/19 09:54 AB (Rec: 05/13/19 12:51 AB [id number]) PT Summary Assessment and Plan Potential Rehabilitation Potential Good Status of Condition at Evaluation Stable Summary Impairments Pain,ROM,Strength,Balance, Cognition,Bed Mobility, Transfers,Gait,Activity Tolerance Assessment Summary pt requiring CGA with mobility and presents wtih decrease activity tolerance due to c/o pain. pt's spouse will be able to assist pt at home. will conduct caregiver training when appropriate. Goals Bed Mobility Goal Independent Transfer Goal Independent,Front Wheeled Walker Gait Goal Independent,Front Wheel Walker Gait Distance 200 Other Goals ambulation without AD ~ 200 ft SBA Days to Meet Goals 5 Frequency of Treatment Frequency Of Treatment Once a Day Recommendations To Nursing Amount of Assist Needed 1 Person Assist Discharge Recommendations PT Discharge Recommendations Home with Assistance, Outpatient PT Equipment Needed for Home Before FWW Discharge Transportation Needs at Discharge Private Vehicle
[2019-05-13 10:20] VITALS: BP 109/68; PULSE 58; RESP 17; TEMP 36.6; O2SAT 97
[2019-05-13 12:00] VITALS: BP 112/67; PULSE 59; RESP 16; TEMP 36.2; O2SAT 98
--- NOTE | 2019-05-13 15:32 | CM.DPC ---
DCP Cont: Per MD, Ortho consulted and no surg needed at this time but recommending back brace/abdominal binder and to work with PT. Per PT, pt's spouse was bedside and participated in caregiver training and provided some minimal translation for the pt and recommending safe d/c home with spouse assist and outpt PT when medically stable. Spouse is available for assist at d/c. Per CM Spa Assistant Manager phone call to MD COLE does not feel pt is medically stable to d/c home yet today due to pain management issues. Plan: SW to follow for likely pt d/c home via spouse POV tomorrow with abdominal binder and outpt PT. Adri Nicholson MSW
[2019-05-13 15:45] VITALS: BP 130/68; PULSE 72; RESP 18; TEMP 37.4; O2SAT 96
--- NOTE | 2019-05-13 15:50 | PC.NURSE ---
Patient worked with P.T. today, ambulate as tolerated per orders, with abdominal binder in place for comfort. Patient requested to shower with assistance of ENROLLMENT ELIGIBILITY REPRESENTATIVE and his significant other, and tolerated well. Telemetry shows Sinus rhythm. VSS. Pain managed with prn oral medications (see MAY0, as well as ice packs and repositioning. Patient currently resting in bed without complaint, with call light within reach.
--- NOTE | 2019-05-13 16:44 | P.DS_ITS ---
History of Present Illness History of Present Illness Chief complaint: Fell over 11 ft Narrative: 38-year-old male fell off a ladder last evening about 5:00 a.m. came to the emergency department where he was evaluated with extensive x- rays CT scans from head to toe all of which are normal. He complains of back pain and pain across the anterior chest. Neurologically he is intact with no neurologic type complaints at this time. Patient did not lose consciousness Discharge Providers Provider Date of admission: 05/11/19 23:43 Discharge Date: 05/13/19 Consults: 05/12/19 09:18 Consult to Physical Therapy Evaluate & Treat Comment: Physician Instructions: Evaluate and Treat 05/13/19 13:51 Consult to Home Health Routine Comment: Spinal Compression fxs Reason For Exam: Please set up FWW for home use Discharge provider: Velasquez Brown MD Summary Hospital Course Discharge Diagnosis: lumbar compression fractures Hospital Course: Patient was admitted after falling off a ladder about [address] scans of head neck thoracic and lumbar spine were all normal. Because of persistent and increasing lumbar pain I had a MRI study done for him yesterday which confirms compression fractures albeit very slight in L1 234 and 6. He has no neurologic sequelae from this. He was visited by an orthopedic mcrae rgeon Dr. Umaña who concurred that ambulation with the support of a back brace or even a Velcro abdominal binder would be appropriate. He has been evaluated thoroughly by Physical therapy here and is ambulating well with the binder in place. He is able to be discharged now on Neurontin and Ultram. Will be followed in a few weeks by the [facility]. He has been told to do no heavy lifting for about a month. Status at Discharge Cognitive/behavioral status at discharge: oriented Functional status at discharge: independent ambulation Overall status at discharge: patient is not back to baseline Time Spent with Patient Time spent: Greater than 30 minutes Exam Vital Signs (past 8 hours): - 05/13/19 10:20 05/13/19 12:00 05/13/19 15:45 Temperature 98 F 97.2 F L 99.3 F Pulse Rate 58 L 59 L 72 Respiratory Rate 17 16 18 Blood Pressure 109/68 112/67 130/68 Pulse Oximetry 97 98 96 Oxygen Delivery Method Room Air Oxygen Flow Rate 0 Objective Labs Result Diagrams: 05/11/19 17:54 05/11/19 17:54 Discharge Plan Discharge Plan Patient Disposition: Home Discharge orders & Medications Prescriptions: New oxycodone-acetaminophen 5-325 mg Tablet 1 tab PO Q4HR PRN (Reason: Pain, Mild (1-3)) Qty: 20 RF: 0 tramadol 50 mg tablet 50 mg PO QID PRN (Reason: Pain, Moderate (4-6)) Qty: 30 RF: 0 gabapentin [Neurontin] 300 mg Capsule 300 mg PO TID Qty: 30 RF: 1 Follow up/Referrals: Michele Mario MD [Physician] - Diet/Activity/Treatments Diet: Diet as Tolerated Activity: no heavy lifting for a month Other treatments: take ibuprofen mostly for pain control and also percocet as needed wear binder while up Skin/Wound/Dressing Care Report to your healthcare provider any signs of infection, such as:: increased pain Visit Report/Discharge Packet Instructions: Low Back Pain (Alternative Therapy), DI for Prescription Opioid Use, DI for Thoracic Back Pain Discharge Data Attending Provider: Velasquez Brown Admit Date/Time: 05/11/19 23:43 Quality VTE Deep Vein Thrombosis/Pulmonary Embolism Present on Admission: No
--- NOTE | 2019-05-13 17:11 | PC.NURSE ---
Discharge note: Patient discharge teaching down with pt and sign. other in room. Discussed patient teaching, percautions of of daily living. Signed prescriptions were handed to patient and then given to Sign. other. IV and tele box was removed, pt paige. well. Pt assist. to WC and escorted down to personal vehicle by aid. Pt left in stable condition, A&O x4.
== END 2019-05-13 17:00 | disposition home or self-care (01) ==
LOC: ED 23:16 → AC 23:44
PROVIDERS: Admitting Provider Surgery; Emergency Provider Emergency Medicine; Visit Provider Surgery
DX: S32.010A Wedge compression fracture of first lumbar vertebra, initial encounter for closed fracture (principal); S32.020A Wedge compression fracture of second lumbar vertebra, initial encounter for closed fracture; S32.030A Wedge compression fracture of third lumbar vertebra, initial encounter for closed fracture; S32.040A Wedge compression fracture of fourth lumbar vertebra, initial encounter for closed fracture; S32.050A Wedge compression fracture of fifth lumbar vertebra, initial encounter for closed fracture; R20.2 Paresthesia of skin; M54.6 Pain in thoracic spine; W11.XXXA Fall on and from ladder, initial encounter; R07.89 Other chest pain; Y99.0 Civilian activity done for income or pay
CPT/HCPCS: 36415; 70450; 71045; 71260; 72125; 72146; 72170; 74177; 80053; 80320; 83690; 85025; 85610; 85730; 86850; 86900; 86901; 90715; 93005; 93010; 96361; 96374; 96375; 97161; 97530; 99217; 99234; 99284; 99285; G0378; J1170; J1885; J2405; J3010; J3360